=== PATIENT | male | born 1950 | race Caucasian/White ===

== ENCOUNTER 2020-05-27 03:46 | Inpatient (IN) ==
[2020-05-27] MEDS ORDERED: 0.9 % SODIUM CHLORIDE 1,000 ML IV SCH (04:45)
--- NOTE | 2020-05-27 08:08 | Internal Med History&Physical ---
HPI History of Present Illness Patient information: Note initiated : 05/27/20 at 8:02 am Service Date, if different from initiated Date: [] Patient: Carmen Morelos a 69 y/o M admitted on 05/27/20 for PNA. Chief Complaint: [] History of present illness: Mr. Morelos is a 69 year discomfort Presented ED with cough for 3 to 4 days and some mild chest. Seen in the ED and chest x-ray did not show anything been presented back 2 days ago.he is cough got worse and he started getting increasing shortness of breath. He did have Covid test which is negative. Patient states he woke up [place] morning feeling dehydrated. But did not have any cough or shortness of breath until at night when he went to bed and he developed shortness of breath shortness of breath with coughing. Started to cough up some yellow-white phlegm. Denies chest pain. Denies subjective fevers In the ED revealed a pneumonia and he was hypoxic. [facility] has staffing issues and patient was transferred to [facility]. Review of Systems: Pertinent positives as above. Denies headache/fever/chills/nausea/vomiting/chest or abdominal pain/diarrhea. Remaining 10 point review of system reviewed negative PFSH PFSH Social History (Updated 05/27/20 @ 08:05 by Bryson Toscano DO) smoking status: Former smoker additional history: Past medical history: Body mass index (BMI) 40.0-44.9, adult (ICD-V85.41) (XNW85-V31.41) DIABETES TYPE LI (POOR CONTROL) (ICD-250.02) (EST44-Q66.65) DIABETES MELLITUS, TYPE II (ICD-250.00) (TTL38-L25.9) Body mass index (BMI) 50-59.9 , adult (ICD-V85.43) (ECG02-L08.43) Morbid (severe) obesity due to excess calories (ICD-278.01) (YTC12-W70.01) Tinnitus, unspecified ear (ICD-388.30) (BZM50-H32.19) Ptosis, eyelid NOS (ICD-374.30) (FUA73-N70.409) CEPHALGIA (ICD-784.0) (NJW64-J79) RETINAL DETACHMENT, LEFT EYE, HX OF (ICD-V12.49) (FVO78-S16.69) GERD (ICD-530.81) (GQS74-R81.9) METABOLIC SYNDROME X (ICD-277.7) (RFJ89-N82.81) HYPERTENSION (ICD-401.9) (NFS98-G77) OBESITY (ICD-278.00) (YPB11-J96.9) DYSLIPIDEMIA (ICD-272.9) (NAG78-N85.9) Surgical History: appendectomy, T&A ,left ankle and right wrist ORIF, Left wrist Navicular fracture w/bone graft 2011. Family History: Reviewed, no changes required. Father (biol.) - Heart Disease Sister (full) - Other Cancer, Diabetes Social History: Reviewed, no changes required. Smoked Tobacco Use: Former smoker Cigarettes: Yes Year quit: 1980 Years Since Last Quit: 40 years, 4 months, 28 days Smokeless Tobacco Use: Never Drug use: no Caffeine use: 1 drinks per day Alcohol use: no Patient used to drink Marital Status: Current Employment: retired [employer] Home Medications and Allergies Home Medications Medication Instructions Recorded Confirmed Type ascorbic acid (vitamin C) 1,000 mg PO DAILY 05/27/20 05/27/20 History aspirin 325 mg PO HS 05/27/20 05/27/20 History atorvastatin 20 mg PO HS 05/27/20 05/27/20 History insulin NPH isoph U-100 human 20 unit SUBCUT BID 05/27/20 05/27/20 History [Novolin N NPH U-100 Insulin] lisinopril 40 mg PO HS 05/27/20 05/27/20 History metformin 850 mg PO BID 05/27/20 05/27/20 History omeprazole 20 mg PO BID 05/27/20 05/27/20 History pioglitazone 15 mg PO BID 05/27/20 05/27/20 History Allergies Allergy/AdvReac Type Severity Reaction Status Date / Time Erythromycin Base Allergy Verified 05/27/20 04:47 hydrocodone Allergy Verified 05/27/20 04:47 EXAM Constitutional Vitals: Temp Pulse Resp BP Pulse Ox 99.3 F H 95 H 22 120/88 91 05/27/20 06:48 05/27/20 06:48 05/27/20 06:48 05/27/20 06:48 11/07/20 06:48 Exam: General: Alert, Awake, No acute Distress, obese Eyes/N/T: EOMI, PERRL, dry MM Head/Neck: neck supple, normocephalic atraumatic CV: RRR, No murmurs, normal s1/s2 Pulm: Rhonchi b/l, no wheezing Abd: soft, nontender, +BS x4 Ext: no clubbing/cyanosis, 2+ b/l LE edema Neuro: Alert, no focal deficits, moves all extremities, CN 2-12 grossly intact, symmetrical strength b/l upper/lower, sensations intact b/l upper/lower Skin: warm/dry A/P Narrative A/P Narrative: A: *CAP w/SIRS: -elevated PCT -covid neg *Acute hypoxic respiratory failure: -2L NC *DANIEL: -1.7 on admit *Hyponatremia: *DM w/hyperglycemia: *HTN: *GERD: *Obesity: * P: -Abx, pending BC/SC -IVF -IS/Acapella, wean O2 a able -hold home ACEI -cont asa/statin -basal and SSI - -ppx: lovenox/home ppi full code Time Spent With Patient Time: Total time spent is greater than 50% in coordination of care (as documented) at patient's floor/unit and/or counseling patient: QUALITY VTE Deep Vein Thrombosis/Pulmonary Embolism Present on Admission: No
[2020-05-27] MEDS ORDERED: ONDANSETRON 4 MG/2 ML VIAL IV PRN (09:06)
[2020-05-27] MEDS ORDERED: POLYETHYLENE GLYCOL 3350 17 GM PACKET PO PRN (09:06)
[2020-05-27] MEDS ORDERED: POTASSIUM CHLORIDE 20 MEQ TABLET PO PRN ×2 (09:06)
[2020-05-27] MEDS ORDERED: SENNOSIDES 1 TABLET PO PRN (09:06)
[2020-05-27] MEDS ORDERED: POTASSIUM CHLORIDE 40 MEQ in DEXTROSE 5% IN WATER 500 ML IV PRN (09:06)
[2020-05-27] MEDS ORDERED: LACTULOSE 20 GM/30 ML ORAL.SOL PO PRN (09:06)
[2020-05-27] MEDS ORDERED: MAGNESIUM SULFATE 2 GM/50 ML BAG IV PRN (09:06)
[2020-05-27] MEDS ORDERED: IPRATROPIUM/ALBUTEROL 3 ML AMPUL.NEB NEB ONE (09:09)
[2020-05-27] MEDS ORDERED: DEXTROSE 50% 50 ML VIAL IV PRN (09:11)
[2020-05-27] MEDS ORDERED: DEXTROSE 31 GM ORAL.SUSP PO PRN (09:11)
[2020-05-27] MEDS ORDERED: LABETALOL 5 MG/ML ML IV PRN (09:13)
[2020-05-27 09:45] LABS: POC Blood Urea Nitrogen 43 mg/dL (6-20); POC CO2 26 mmol/L (22-30); POC Calcium, Ionized 1.05 mmEq/L (1.16-1.32); POC Chloride 99 mEq/L (96-108); POC Creatinine 1.5 mg/dL (0.6-1.2); POC Glucose, Random 283 mg/dL (70-105); POC Hematocrit 39 % (41-55); POC Potassium 5.1 mEql/L (3.3-5.1); POC Sodium 134 mEq/L (133-145)
[2020-05-27] MEDS: ENOXAPARIN 40 MG/0.4 ML SYRINGE SQ SCH (10:01)
[2020-05-27] MEDS: LEVOFLOXACIN 750 MG/150 ML BAG IV SCH (10:01)
[2020-05-27] MEDS: INSULIN NPH, HUMAN 1 UNIT/0.01 ML UNIT SQ SCH ×2 (10:01→20:40)
[2020-05-27] MEDS: 0.9 % SODIUM CHLORIDE 1,000 ML IV SCH ×2 (10:01→21:10)
[2020-05-27] MEDS: INSULIN LISPRO 1 UNIT/0.01 ML UNIT SQ SCH ×4 (12:00→20:41)
[2020-05-27] MEDS: 0.9 % SODIUM CHLORIDE 10 ML SYRINGE IV SCH ×2 (14:44→21:13)
[2020-05-27] MEDS: IPRATROPIUM/ALBUTEROL 3 ML AMPUL.NEB NEB PRN ×2 (14:46→19:12)
[2020-05-27] MEDS: ACETAMINOPHEN 325 MG TABLET PO PRN (19:23)
[2020-05-27] MEDS: OMEPRAZOLE 20 MG CAPSULE PO SCH (20:28)
[2020-05-27] MEDS: PIOGLITAZONE 15 MG TABLET PO SCH (20:28)
[2020-05-27] MEDS: DOCUSATE SODIUM 100 MG CAPSULE PO SCH (20:28)
[2020-05-27] MEDS: ATORVASTATIN 20 MG TABLET PO SCH (20:28)
[2020-05-28] MEDS: 0.9 % SODIUM CHLORIDE 10 ML SYRINGE IV SCH ×3 (05:08→20:34)
[2020-05-28] MEDS: ACETAMINOPHEN 325 MG TABLET PO PRN ×2 (05:08→17:09)
[2020-05-28 07:00] LABS: Basophils # (Auto) 0.02 K/mcL (0.00-0.20); Basophils % (Auto) 0.1 % (0.0-2.0); Eosinophils # (Auto) 0 K/mcL (0.00-0.70); Eosinophils % (Auto) 0 % (0.0-7.0); Hematocrit 31.5 % (41.0-55.0); Hemoglobin 10.2 g/dL (13.5-16.5); Lymphocytes # (Auto) 1.09 K/mcL (1.50-4.80); Lymphocytes % (Auto) 8.1 % (15.0-49.0); Mean Cell Volume 85.4 fL (80.0-100.0); Mean Corpuscular HGB Conc 32.4 g/dL (31.0-36.0); Mean Platelet Volume 10.3 fL (7.4-10.4); Monocytes # (Auto) 0.76 K/mcL (0.10-0.90); Monocytes % (Auto) 5.6 % (1.0-12.0); Neutrophils % (Auto) 86.2 % (38.0-78.0); Platelet Count 255 K/mcL (140-440); RBC 3.69 M/mcL (4.50-5.90); Red Cell Distribution Width 15.9 % (11.5-14.5); WBC 13.5 K/mcL (4.5-11.0)
[2020-05-28 07:13] LABS: ALT/SGPT 35 U/L (<40); AST/SGOT 45 U/L (<40); Albumin 2.7 gm/dL (3.2-5.2); Albumin/Globulin Ratio 0.8 (1.0-2.3); Alkaline Phosphatase 74 U/L (39-117); Bilirubin,Direct < 0.2 mg/dL (<0.3); Bilirubin,Total 0.3 mg/dL (0.1-1.0); Blood Urea Nitrogen 33 mg/dL (8-23); Calcium 7.5 mg/dL (8.6-10.4); Carbon Dioxide 18 mmol/L (22-30); Chloride 93 mmol/L (96-108); Globulin 3.6 gm/dL (2.2-3.7); Glomerular Filtration Rate 46; Glucose 310 mg/dL (70-105); Lactate Dehydrogenase 236 U/L (135-225); Phosphorous 1.3 mg/dL (2.5-4.5); Triglycerides 100 mg/dL (<150); Uric Acid 6.4 mg/dL (2.5-8.0)
--- NOTE | 2020-05-28 07:59 | Internal Med Progress Note ---
SUBJECTIVE Subjective Patient information: Note initiated : 05/28/20 at 7:55 am Service Date, if different from initiated Date: [] Patient: Carmen Morelos a 69 y/o M admitted on 05/27/20 for PNA. Chief Complaint: [] Interval history: History of present illness: Mr. Morelos is a 69 year discomfort Presented ED with cough for 3 to 4 days and some mild chest. Seen in the ED and chest x-ray did not show anything been presented back 2 days ago.he is cough got worse and he started getting increasing shortness of breath. He did have Covid test which is negative. Patient states he woke up Friday morning feeling dehydrated. But did not have any cough or shortness of breath until at night when he went to bed and he developed shortness of breath shortness of breath with coughing. Started to cough up some yellow-white phlegm. Denies chest pain. Denies subjective fevers In the ED revealed a pneumonia and he was hypoxic. [facility] has staffing issues and patient was transferred to [facility]. 05/28 Patient had some fevers and chills last night but overall feels much better. Shortness of breath is much improved although still on oxygen, currently on 5 L. But sats mid 90s. No other new pains or complaints other than the cough. Review of Systems: denies headache/nausea/vomiting/chest or abdominal pain/diarrhea. Otherwise see above. Constitutional Vitals: Vital Signs Temp Pulse Resp BP Pulse Ox 100.1 F H 95 H 18 126/68 93 05/28/20 07:13 05/28/20 07:13 05/28/20 07:13 05/28/20 07:13 05/28/20 07:13 Period Temp Pulse Resp BP Sys/Ruiz Pulse Ox Last 24 Hr 98.1 F-101.7 F 95-120 18-28 122-148/66-80 88-93 Intake and Output 05/27/20 05/28/20 05/28/20 21:59 05:59 13:59 Intake Total 2590 1999 Output Total 1100 775 200 Balance 1490 1225 -200 Weight 137.801 kg Intake & Output: Intake & Output 05/27/20 05/28/20 05/28/20 21:59 05:59 13:59 Intake Total 2590 1999 Output Total 1100 775 200 Balance 1490 1225 -200 Weight 137.801 kg Intake: IV 1790 Sodium Chloride 0.9% 1,000 ml @ 1790 75 mls/hr IV .[id number] [facility] Rx#: [id number] Oral 800 1999 Output: Urine Catheter Amount 600 Void Amount 500 775 200 Other: Meal Dinner Percent of Meal Consumed 75% Feeding Ability Independent Urine Appearance Clear Clear Urine Color Bright Yellow Bright Yellow Urine Odor Strong Normal Exam: General: Alert, Awake, No acute Distress, obese Eyes/N/T: EOMI, PERRL, Head/Neck: neck supple, CV: RRR, No murmurs, Pulm: right side rhonchi and diminished, no wheezing Abd: soft, nontender, +BS x4 Ext: no clubbing/cyanosis, 2+ b/l LE edema Neuro: Alert, no focal deficits, moves all extremities Skin: warm/dry OBJ DATA Labs CBC & Chem 7: 05/28/20 05:20 05/28/20 05:19 Labs: Abnormal Lab Results 05/28/20 05/28/20 05/27/20 05:20 05:19 09:35 WBC 13.5 H RBC 3.69 L Hgb 10.2 L Hct 31.5 L POC Hct 39 L RDW 15.9 H Neut % (Auto) 86.2 H Lymph % (Auto) 8.1 L Lymph # (Auto) 1.09 L Absolute Neutrophils 11.62 H Sodium 124 L Chloride 93 L Carbon Dioxide 18 L POC BUN 43 H BUN 33 H Creatinine 1.5 H POC Creatinine 1.5 H Glucose 310 H POC Glucose 283 H Calcium 7.5 L POC WB Ioniz Calcium 1.05 L Phosphorus 1.3 L Magnesium 1.3 L AST 45 H Lactate Dehydrogenase 236 H Albumin 2.7 L Albumin/Globulin Ratio 0.8 L Meds: Medications Acetaminophen (Tylenol) 650 mg PO Q6HP PRN PRN Reason: PAIN/FEVER > 101 Last Admin: 05/28/20 05:08 Dose: 650 mg Documented by: Albuterol/Ipratropium (Duoneb) 3 ml NEB Q4HP PRN PRN Reason: Shortness Of Breath Last Admin: 05/27/20 19:12 Dose: 3 ml Documented by: Atorvastatin Calcium (Lipitor) 20 mg PO HS [facility] Last Admin: 05/27/20 20:28 Dose: 20 mg Documented by: Dextrose (Dextrose 50%) 0 ml IV UD PRN PRN Reason: Hypoglycemia Diagnostic Test (Pha) (Accu-Chek) 1 each FS [facility] Last Admin: 05/27/20 20:30 Dose: 1 each Documented by: Docusate Sodium (Colace) 100 mg PO BID [facility] Last Admin: 05/27/20 20:28 Dose: 100 mg Documented by: Enoxaparin Sodium (Lovenox) 40 mg SQ DAILY [facility] Last Admin: 05/27/20 10:01 Dose: 40 mg Documented by: Glucose (Insta-Glucose) 15 gm PO PRN PRN PRN Reason: Hypoglycemia Sodium Chloride (Sodium Chloride 0.9%) 1,000 mls @ 75 mls/hr IV .[id number] [facility] Stop: 05/28/20 11:46 Last Admin: 05/27/20 21:10 Dose: 75 mls/hr Documented by: Potassium Chloride 40 meq/ (Dextrose) 520 mls @ 130 mls/hr IV UD PRN PRN Reason: Potassium < 3 Magnesium Sulfate (Magnesium Sulfate) 2 gm in 50 mls @ 50 mls/hr IV UD PRN PRN Reason: Magnesium </= 1.6 Levofloxacin (Levaquin) 750 mg in 150 mls @ 100 mls/hr IV Q24H [facility]; Protocol Last Infusion: 05/27/20 11:31 Dose: Infused Documented by: Insulin Human Lispro (Humalog) 0 unit SQ [facility]; Protocol Last Admin: 05/27/20 20:41 Dose: 12 units Documented by: Insulin Human NPH (Humalin N) 20 unit SQ BID [facility] Last Admin: 05/27/20 20:40 Dose: 20 units Documented by: Labetalol HCl (Trandate) 0 mg IV Q2HP PRN PRN Reason: Hypertension Lactulose (Cephulac) 20 gm PO DAILYP PRN PRN Reason: Constipation Omeprazole (Prilosec) 20 mg PO BID [facility] Last Admin: 05/27/20 20:28 Dose: 20 mg Documented by: Ondansetron HCl (Zofran) 4 mg IV Q4HP PRN PRN Reason: Nausea And Vomiting Pioglitazone HCl (Actos) 15 mg PO BID [facility] Last Admin: 05/27/20 20:28 Dose: 15 mg Documented by: Polyethylene Glycol (Miralax) 17 gm PO DAILYP PRN PRN Reason: Constipation Potassium Chloride (Kdur) 40 meq PO UD PRN PRN Reason: Potssium is 3-3.5 Potassium Chloride (Kdur) 40 meq PO UD PRN PRN Reason: Potassium < 3 Senna (Senokot) 2 tab PO DAILYP PRN PRN Reason: Constipation Sodium Chloride (Saline Flush) 10 ml IV Q8 [facility] Last Admin: 05/28/20 05:08 Dose: Not Given Documented by: A/P Narrative A/P Narrative: A: *CAP w/SIRS(dense RUL): -elevated PCT, febrile overnight -covid/myco/strep neg -WBC 16>13 *Acute hypoxic respiratory failure: -concern for a cardiac component, some cephalization on cxr and fissure fluid and peripheral edema -2-5L NC *DANIEL on ?CKD: -1.7>1.5 *Hyponatremia/hypomag/hypophos: 130>124 *DM w/hyperglycemia: A1c 8.6 *HTN: *GERD: *Obesity: P: -cont Levaquin, pending BC/SC -IS/Acapella, wean O2 a able -echo -hold home ACEI -cont asa/statin -basal (increase from 20bid to 30) and SSI - -ppx: lovenox/home ppi full code Time Spent With Patient Time: Total time spent is greater than 50% in coordination of care (as documented) at patient's floor/unit and/or counseling patient: QUALITY VTE Deep Vein Thrombosis/Pulmonary Embolism Present on Admission: No
[2020-05-28] MEDS ORDERED: MAGNESIUM SULFATE 2 GM/50 ML BAG IV ONE (08:03)
[2020-05-28 08:04] LABS: Estimated Average Glucose(eAG) 200 mg/dL; Hemoglobin A1C 8.6 % Hgb (4.0-6.0)
[2020-05-28] MEDS: INSULIN LISPRO 1 UNIT/0.01 ML UNIT SQ SCH ×5 (08:05→20:31)
[2020-05-28] MEDS: LEVOFLOXACIN 750 MG/150 ML BAG IV SCH (08:50)
[2020-05-28] MEDS: ENOXAPARIN 40 MG/0.4 ML SYRINGE SQ SCH (09:00)
[2020-05-28] MEDS: NEUTRA PHOS 1 PACKET PO SCH ×3 (09:02→20:30)
[2020-05-28] MEDS: DOCUSATE SODIUM 100 MG CAPSULE PO SCH ×2 (09:02→20:34)
[2020-05-28] MEDS: OMEPRAZOLE 20 MG CAPSULE PO SCH ×2 (09:03→20:31)
[2020-05-28] MEDS: INSULIN NPH, HUMAN 1 UNIT/0.01 ML UNIT SQ SCH ×2 (09:03→20:31)
[2020-05-28] MEDS: PIOGLITAZONE 15 MG TABLET PO SCH ×2 (09:03→20:31)
[2020-05-28] MEDS ORDERED: ALBUMIN HUMAN 12.5 GM/50 ML BAG IV ONE (09:41)
[2020-05-28] MEDS ORDERED: FUROSEMIDE 40 MG/4 ML VIAL IV ONE (09:41)
--- NOTE | 2020-05-28 10:02 | XRay Report ---
HISTORY: Follow-up pneumonia. FINDINGS: There is a large consolidating alveolar infiltrate in the right upper lobe with air bronchograms. There is mild involvement in superior segment of the right lower lobe. Right lung base and left lung are clear. No pleural effusion is present. The heart size is normal. No prior study is available for comparison. IMPRESSION: Severe right upper lobe pneumonia Interpreted and Authenticated by: Osito Sol 05/28/20
[2020-05-28] MEDS: guaiFENesin/CODEINE 10 ML UDC PO PRN ×2 (10:39→15:04)
[2020-05-28] MEDS: ATORVASTATIN 20 MG TABLET PO SCH (20:31)
[2020-05-29] MEDS: INSULIN LISPRO 1 UNIT/0.01 ML UNIT SQ SCH ×6 (00:20→20:37)
[2020-05-29] MEDS: guaiFENesin/CODEINE 10 ML UDC PO PRN ×2 (00:25→11:52)
[2020-05-29] MEDS: 0.9 % SODIUM CHLORIDE 10 ML SYRINGE IV SCH ×3 (04:16→20:25)
[2020-05-29 05:57] LABS: Basophils # (Auto) 0.02 K/mcL (0.00-0.20); Basophils % (Auto) 0.2 % (0.0-2.0); Eosinophils # (Auto) 0.02 K/mcL (0.00-0.70); Eosinophils % (Auto) 0.2 % (0.0-7.0); Hemoglobin 9.8 g/dL (13.5-16.5); Lymphocytes # (Auto) 1.27 K/mcL (1.50-4.80); Lymphocytes % (Auto) 10.2 % (15.0-49.0); Mean Corpuscular HGB Conc 32.7 g/dL (31.0-36.0); Mean Platelet Volume 9.9 fL (7.4-10.4); Monocytes # (Auto) 0.99 K/mcL (0.10-0.90); Neutrophils % (Auto) 81.4 % (38.0-78.0); Platelet Count 288 K/mcL (140-440); RBC 3.53 M/mcL (4.50-5.90); Red Cell Distribution Width 15.9 % (11.5-14.5); WBC 12.5 K/mcL (4.5-11.0)
[2020-05-29 06:28] LABS: Phosphorous 2.1 mg/dL (2.5-4.5)
[2020-05-29 06:30] LABS: ALT/SGPT 46 U/L (<40); AST/SGOT 61 U/L (<40); Albumin/Globulin Ratio 0.9 (1.0-2.3); Alkaline Phosphatase 84 U/L (39-117); Bilirubin,Direct < 0.2 mg/dL (<0.3); Bilirubin,Total 0.3 mg/dL (0.1-1.0); Blood Urea Nitrogen 26 mg/dL (8-23); Calcium 7.6 mg/dL (8.6-10.4); Carbon Dioxide 24 mmol/L (22-30); Chloride 92 mmol/L (96-108); Globulin 3.5 gm/dL (2.2-3.7); Glomerular Filtration Rate 61; Glucose 190 mg/dL (70-105); Lactate Dehydrogenase 254 U/L (135-225); Phosphorous 2.1 mg/dL (2.5-4.5); Triglycerides 130 mg/dL (<150); Uric Acid 6.4 mg/dL (2.5-8.0)
[2020-05-29] MEDS ORDERED: POTASSIUM PHOSPHATE 20 MEQ in DEXTROSE 5% IN WATER 250 ML IV ONE (07:11)
[2020-05-29] MEDS ORDERED: MAGNESIUM SULFATE 2 GM/50 ML BAG IV ONE (07:11)
[2020-05-29] MEDS: PIOGLITAZONE 15 MG TABLET PO SCH ×2 (08:41→20:23)
[2020-05-29] MEDS: DOCUSATE SODIUM 100 MG CAPSULE PO SCH ×2 (08:41→20:23)
[2020-05-29] MEDS: OMEPRAZOLE 20 MG CAPSULE PO SCH ×2 (08:41→20:23)
[2020-05-29] MEDS: PHOSPHORUS 250 MG TABLET PO SCH ×2 (08:41→20:23)
[2020-05-29] MEDS: ENOXAPARIN 40 MG/0.4 ML SYRINGE SQ SCH (08:42)
[2020-05-29] MEDS: LEVOFLOXACIN 750 MG/150 ML BAG IV SCH (08:43)
[2020-05-29] MEDS: INSULIN NPH, HUMAN 1 UNIT/0.01 ML UNIT SQ SCH ×2 (08:43→20:38)
--- NOTE | 2020-05-29 14:22 | Internal Med Progress Note ---
SUBJECTIVE Subjective Patient information: Note initiated : 05/29/20 at 2:16 pm Service Date, if different from initiated Date: [] Patient: Carmen Morelos a 69 y/o M admitted on 05/27/20 for PNA. Chief Complaint: [] Interval history: History of present illness: Mr. Morelos is a 69 year discomfort Presented ED with cough for 3 to 4 days and some mild chest. Seen in the ED and chest x-ray did not show anything been presented back 2 days ago.he is cough got worse and he started getting increasing shortness of breath. He did have Covid test which is negative. Patient states he woke up Friday morning feeling dehydrated. But did not have any cough or shortness of breath until at night when he went to bed and he developed shortness of breath shortness of breath with coughing. Started to cough up some yellow-white phlegm. Denies chest pain. Denies subjective fevers In the ED revealed a pneumonia and he was hypoxic. [facility] has staffing issues and patient was transferred to [facility]. 05/28 Patient had some fevers and chills last night but overall feels much better. Shortness of breath is much improved although still on oxygen, currently on 5 L. But sats mid 90s. No other new pains or complaints other than the cough. 05/29 Today pt feels fine and does not have new complaints. His leg swelling improving. Creatinine went down to 1.2 PHos and mag 2.1 and 1.6 Lasix 20mg iv bid Review of Systems: denies headache/nausea/vomiting/chest or abdominal pain/diarrhea. Otherwise see above. Constitutional Vitals: Vital Signs Temp Pulse Resp BP Pulse Ox 100.6 F H 91 H 20 155/72 95 05/29/20 11:58 05/29/20 11:58 05/29/20 11:58 05/29/20 11:58 05/29/20 11:58 Period Temp Pulse Resp BP Sys/Ruiz Pulse Ox Last 24 Hr 98.3 F-103.0 F 86-103 20-26 121-155/65-73 90-95 Intake and Output 05/29/20 05/29/20 05/29/20 05:59 13:59 21:59 Intake Total 237 221.6800 Output Total 100 Balance 336 142.1088 Weight 138.164 kg Intake & Output: Intake & Output 05/29/20 05/29/20 05/29/20 05:59 13:59 21:59 Intake Total 375 424.0358 Output Total 100 Balance 752 155.6983 Weight 138.164 kg Intake: IV 454.5455 Potassium Phosphate 20 Meq In 254.5455 Dextrose 5% in Water 250 ml @ 127.273 mls/hr IV ONCE ONE Rx#: [id number] Oral 400 Output: Void Amount 100 Other: Urine Appearance Clear Urine Color Pale Urine Odor Normal Stool Size Small Small Stool Color Brown Brown Stool Consistency Soft Soft Watery Watery # Voids 1 # Bowel Movements 1 Additional findings Additional findings: General: Alert, Awake, No acute Distress, obese Eyes/N/T: EOMI, PERRL, Head/Neck: neck supple, CV: RRR, No murmurs, Pulm: right side rhonchi and diminished, no wheezing Abd: soft, nontender, +BS x4 Ext: no clubbing/cyanosis, 2+ b/l LE edema Neuro: Alert, no focal deficits, moves all extremities Skin: warm/dry OBJ DATA Labs CBC & Chem 7: 05/29/20 04:36 05/29/20 04:36 Labs: Abnormal Lab Results 05/29/20 05/29/20 05/29/20 04:36 04:36 04:36 WBC 12.5 H RBC 3.53 L Hgb 9.8 L Hct 30.0 L POC Hct RDW 15.9 H Neut % (Auto) 81.4 H Lymph % (Auto) 10.2 L Lymph # (Auto) 1.27 L [place] # (Auto) 0.99 H Absolute Neutrophils 10.15 H Sodium 128 L Chloride 92 L Carbon Dioxide POC BUN BUN 26 H Creatinine POC Creatinine Glucose 190 H POC Glucose Hemoglobin A1c Calcium 7.6 L POC WB Ioniz Calcium Phosphorus 2.1 L 2.1 L Magnesium AST 61 H ALT 46 H Lactate Dehydrogenase 254 H NT-Pro-B Natriuret Pep Albumin 3.0 L Albumin/Globulin Ratio 0.9 L 05/28/20 05/28/20 05/28/20 08:17 05:20 05:19 WBC 13.5 H RBC 3.69 L Hgb 10.2 L Hct 31.5 L POC Hct RDW 15.9 H Neut % (Auto) 86.2 H Lymph % (Auto) 8.1 L Lymph # (Auto) 1.09 L [place] # (Auto) Absolute Neutrophils 11.62 H Sodium 124 L Chloride 93 L Carbon Dioxide 18 L POC BUN BUN 33 H Creatinine 1.5 H POC Creatinine Glucose 310 H POC Glucose Hemoglobin A1c 8.6 H Calcium 7.5 L POC WB Ioniz Calcium Phosphorus 1.3 L Magnesium 1.3 L AST 45 H ALT Lactate Dehydrogenase 236 H NT-Pro-B Natriuret Pep 1777.0 H Albumin 2.7 L Albumin/Globulin Ratio 0.8 L 05/27/20 09:35 WBC RBC Hgb Hct POC Hct 39 L RDW Neut % (Auto) Lymph % (Auto) Lymph # (Auto) [place] # (Auto) Absolute Neutrophils Sodium Chloride Carbon Dioxide POC BUN 43 H BUN Creatinine POC Creatinine 1.5 H Glucose POC Glucose 283 H Hemoglobin A1c Calcium POC WB Ioniz Calcium 1.05 L Phosphorus Magnesium AST ALT Lactate Dehydrogenase NT-Pro-B Natriuret Pep Albumin Albumin/Globulin Ratio Meds: Medications Acetaminophen (Tylenol) 650 mg PO Q6HP PRN PRN Reason: PAIN/FEVER > 101 Last Admin: 05/28/20 17:09 Dose: 650 mg Documented by: Albuterol/Ipratropium (Duoneb) 3 ml NEB Q4HP PRN PRN Reason: Shortness Of Breath Last Admin: 05/27/20 19:12 Dose: 3 ml Documented by: Atorvastatin Calcium (Lipitor) 20 mg PO HS [facility] Last Admin: 05/28/20 20:31 Dose: 20 mg Documented by: Dextrose (Dextrose 50%) 0 ml IV UD PRN PRN Reason: Hypoglycemia Diagnostic Test (Pha) (Accu-Chek) 1 each FS Q4H [facility] Last Admin: 05/29/20 11:52 Dose: 1 each Documented by: Docusate Sodium (Colace) 100 mg PO BID [facility] Last Admin: 05/29/20 08:41 Dose: 100 mg Documented by: Enoxaparin Sodium (Lovenox) 40 mg SQ DAILY [facility] Last Admin: 05/29/20 08:42 Dose: 40 mg Documented by: Glucose (Insta-Glucose) 15 gm PO PRN PRN PRN Reason: Hypoglycemia Guaifenesin/Codeine Phosphate (Robitussin Ac) 10 ml PO Q4HP PRN PRN Reason: Cough Last Admin: 05/29/20 11:52 Dose: 10 ml Documented by: Potassium Chloride 40 meq/ (Dextrose) 520 mls @ 130 mls/hr IV UD PRN PRN Reason: Potassium < 3 Magnesium Sulfate (Magnesium Sulfate) 2 gm in 50 mls @ 50 mls/hr IV UD PRN PRN Reason: Magnesium </= 1.6 Last Infusion: 05/28/20 08:30 Dose: Infused Documented by: Levofloxacin (Levaquin) 750 mg in 150 mls @ 100 mls/hr IV Q24H [facility]; Protocol Last Infusion: 05/29/20 10:20 Dose: Infused Documented by: Insulin Human Lispro (Humalog) 0 unit SQ Q4H [facility]; Protocol Last Admin: 05/29/20 11:56 Dose: 12 unit Documented by: Insulin Human NPH (Humalin N) 30 unit SQ BID [facility] Last Admin: 05/29/20 08:43 Dose: 30 unit Documented by: Labetalol HCl (Trandate) 0 mg IV Q2HP PRN PRN Reason: Hypertension Lactulose (Cephulac) 20 gm PO DAILYP PRN PRN Reason: Constipation Last Admin: 05/28/20 21:46 Dose: 20 gm Documented by: Omeprazole (Prilosec) 20 mg PO BID [facility] Last Admin: 05/29/20 08:41 Dose: 20 mg Documented by: Ondansetron HCl (Zofran) 4 mg IV Q4HP PRN PRN Reason: Nausea And Vomiting Pioglitazone HCl (Actos) 15 mg PO BID [facility] Last Admin: 05/29/20 08:41 Dose: 15 mg Documented by: Polyethylene Glycol (Miralax) 17 gm PO DAILYP PRN PRN Reason: Constipation Potassium Chloride (Kdur) 40 meq PO UD PRN PRN Reason: Potssium is 3-3.5 Potassium Chloride (Kdur) 40 meq PO UD PRN PRN Reason: Potassium < 3 Senna (Senokot) 2 tab PO DAILYP PRN PRN Reason: Constipation Last Admin: 05/28/20 09:02 Dose: 2 tab Documented by: Sodium Chloride (Saline Flush) 10 ml IV Q8 [facility] Last Admin: 05/29/20 12:02 Dose: 10 ml Documented by: Sodium Phosphate (Pot Phosphate Neutral) 250 mg PO BID [facility] Last Admin: 05/29/20 08:41 Dose: 250 mg Documented by: A/P Narrative A/P Narrative: 1. CAP w/SIRS(dense RUL): -elevated PCT, febrile overnight -covid/myco/strep neg -WBC 16>13>12.5 2. Acute hypoxic respiratory failure: -concern for a cardiac component, some cephalization on cxr and fissure fluid and peripheral edema -3 NC - Echo pending - Lasix 20mg iv bid 3. DANIEL on ?CKD: -1.7>1.5 >1.2 4. Hyponatremia/hypomag/hypophos: 5. DM w/hyperglycemia: A1c 8.6 6. HTN: 7. GERD: 8. Morbid obesity: BMI 43.7 9. Electrolytes derangement: Phos 2.1, mag 1.6 P: -cont Levaquin, pending BC/SC -IS/Acapella, wean O2 a able -echo -hold home ACEI -cont asa/statin -basal (increase from 20bid to 30) and SSI -correct electrolytes, repeat electrolyets in am -ppx: lovenox/home ppi full code Time Spent With Patient Time: Total time spent is greater than 50% in coordination of care (as documented) at patient's floor/unit and/or counseling patient: QUALITY VTE Deep Vein Thrombosis/Pulmonary Embolism Present on Admission: No
[2020-05-29] MEDS: ATORVASTATIN 20 MG TABLET PO SCH (20:23)
[2020-05-30] MEDS: INSULIN LISPRO 1 UNIT/0.01 ML UNIT SQ SCH ×6 (00:28→20:55)
[2020-05-30] MEDS: 0.9 % SODIUM CHLORIDE 10 ML SYRINGE IV SCH ×3 (05:52→20:56)
--- NOTE | 2020-05-30 08:36 | XRay Report ---
CLINICAL INFORMATION: tachycardia and tachypnea COMPARISON: 05/28/2020 FINDINGS: Heart size is normal for technique. Upper mediastinal widening and increased density in the right paratracheal region likely represent adenopathy. Right suprahilar mass is not excluded. Dense consolidated right upper lobe infiltrate shows slight improved aeration peripherally. No effusion. IMPRESSION: Slight improvement in large right upper lobe infiltrate since exam two days prior. Increased density in the right paratracheal and azygos region likely representing represent adenopathy. Right suprahilar mass is not excluded. If this does not clear on follow-up chest x-ray in 2-3 weeks, a chest CT would be recommended Interpreted and Authenticated by: Tomas Rogers 05/30/20
[2020-05-30] MEDS: PIOGLITAZONE 15 MG TABLET PO SCH ×2 (08:38→20:54)
[2020-05-30] MEDS: PHOSPHORUS 250 MG TABLET PO SCH ×2 (08:38→20:54)
[2020-05-30] MEDS: INSULIN NPH, HUMAN 1 UNIT/0.01 ML UNIT SQ SCH ×2 (08:38→20:55)
[2020-05-30] MEDS: OMEPRAZOLE 20 MG CAPSULE PO SCH ×2 (08:38→20:55)
[2020-05-30] MEDS: LEVOFLOXACIN 750 MG/150 ML BAG IV SCH (08:38)
[2020-05-30] MEDS: DOCUSATE SODIUM 100 MG CAPSULE PO SCH ×2 (08:39→20:55)
[2020-05-30] MEDS: ENOXAPARIN 40 MG/0.4 ML SYRINGE SQ SCH (08:39)
[2020-05-30] MEDS ORDERED: IPRATROPIUM/ALBUTEROL 3 ML AMPUL.NEB NEB PRN (09:11)
[2020-05-30] MEDS ORDERED: ALBUTEROL SULFATE 200 PUFF INHALER INH PRN (09:11)
--- NOTE | 2020-05-30 10:39 | Internal Med Progress Note ---
SUBJECTIVE Subjective Patient information: Note initiated : 05/30/20 at 10:35 am Service Date, if different from initiated Date: [] Patient: Carmen Morelos a 69 y/o M admitted on 05/27/20 for PNA. Chief Complaint: [] Interval history: History of present illness: Mr. Morelos is a 69 year discomfort Presented ED with cough for 3 to 4 days and some mild chest. Seen in the ED and chest x-ray did not show anything been presented back 2 days ago.he is cough got worse and he started getting increasing shortness of breath. He did have Covid test which is negative. Patient states he woke up Friday morning feeling dehydrated. But did not have any cough or shortness of breath until at night when he went to bed and he developed shortness of breath shortness of breath with coughing. Started to co ugh up some yellow-white phlegm. Denies chest pain. Denies subjective fevers In the ED revealed a pneumonia and he was hypoxic. [facility] has staffing issues and patient was transferred to [facility]. 05/28 Patient had some fevers and chills last night but overall feels much better. Shortness of breath is much improved although still on oxygen, currently on 5 L. But sats mid 90s. No other new pains or complaints other than the cough. 05/29 Today pt feels fine and does not have new complaints. His leg swelling improving. Creatinine went down to 1.2 PHos and mag 2.1 and 1.6 Lasix 20mg iv bid 05/30 Pt does not have new complaints. vital signs are stable and acceptable. Wheezing b/l will start him on short term of steroid. inhalers. fluid restriction pending echo report Review of Systems: denies headache/nausea/vomiting/chest or abdominal pain/diarrhea. Otherwise see above. Constitutional Vitals: Vital Signs Temp Pulse Resp BP Pulse Ox 98.5 F 112 H 22 126/72 91 05/30/20 08:00 05/30/20 08:00 05/30/20 08:00 05/30/20 08:00 05/30/20 08:00 Period Temp Pulse Resp BP Sys/Ruiz Pulse Ox Last 24 Hr 98.5 F-100.6 F 91-121 20-26 126-159/65-79 91-96 Intake and Output 05/29/20 05/30/20 05/30/20 21:59 05:59 13:59 Intake Total 700 Output Total 500 Balance 200 Weight 138.028 kg Intake & Output: Intake & Output 05/29/20 05/30/20 05/30/20 21:59 05:59 13:59 Intake Total 700 Output Total 500 Balance 200 Weight 138.028 kg Intake: Oral 700 Output: Void Amount 500 Other: Urine Appearance Clear Urine Color Bright Yellow # Bowel Movements 1 Additional findings Additional findings: General: Alert, Awake, No acute Distress, obese Eyes/N/T: EOMI, PERRL, Head/Neck: neck supple, CV: RRR, No murmurs, Pulm: wheezing b/l, right side rhonchi and diminished, Abd: soft, nontender, +BS x4 Ext: no clubbing/cyanosis, 2+ b/l LE edema Neuro: Alert, no focal deficits, moves all extremities Skin: warm/dry OBJ DATA Labs CBC & Chem 7: 05/29/20 04:36 05/29/20 04:36 Labs: Abnormal Lab Results 05/30/20 05/29/20 05/29/20 05:16 04:36 04:36 WBC RBC Hgb Hct RDW Neut % (Auto) Lymph % (Auto) Lymph # (Auto) [place] # (Auto) Absolute Neutrophils Sodium 128 L Chloride 92 L Carbon Dioxide BUN 26 H Creatinine Glucose 190 H Hemoglobin A1c Calcium 7.6 L Phosphorus 2.0 L 2.1 L 2.1 L Magnesium AST 61 H ALT 46 H Lactate Dehydrogenase 254 H NT-Pro-B Natriuret Pep Albumin 3.0 L Albumin/Globulin Ratio 0.9 L 05/29/20 05/28/20 05/28/20 04:36 08:17 05:20 WBC 12.5 H 13.5 H RBC 3.53 L 3.69 L Hgb 9.8 L 10.2 L Hct 30.0 L 31.5 L RDW 15.9 H 15.9 H Neut % (Auto) 81.4 H 86.2 H Lymph % (Auto) 10.2 L 8.1 L Lymph # (Auto) 1.27 L 1.09 L [place] # (Auto) 0.99 H Absolute Neutrophils 10.15 H 11.62 H Sodium Chloride Carbon Dioxide BUN Creatinine Glucose Hemoglobin A1c Calcium Phosphorus Magnesium AST ALT Lactate Dehydrogenase NT-Pro-B Natriuret Pep 1777.0 H Albumin Albumin/Globulin Ratio 05/28/20 05:19 WBC RBC Hgb Hct RDW Neut % (Auto) Lymph % (Auto) Lymph # (Auto) [place] # (Auto) Absolute Neutrophils Sodium 124 L Chloride 93 L Carbon Dioxide 18 L BUN 33 H Creatinine 1.5 H Glucose 310 H Hemoglobin A1c 8.6 H Calcium 7.5 L Phosphorus 1.3 L Magnesium 1.3 L AST 45 H ALT Lactate Dehydrogenase 236 H NT-Pro-B Natriuret Pep Albumin 2.7 L Albumin/Globulin Ratio 0.8 L Meds: Medications Acetaminophen (Tylenol) 650 mg PO Q6HP PRN PRN Reason: PAIN/FEVER > 101 Last Admin: 05/28/20 17:09 Dose: 650 mg Documented by: Albuterol Sulfate (Ventolin) 1 puff INH Q4-6HP PRN PRN Reason: Shortness Of Breath Albuterol/Ipratropium (Duoneb) 3 ml NEB Q4HP PRN PRN Reason: Shortness Of Breath Atorvastatin Calcium (Lipitor) 20 mg PO HS [facility] Last Admin: 05/29/20 20:23 Dose: 20 mg Documented by: Dextrose (Dextrose 50%) 0 ml IV UD PRN PRN Reason: Hypoglycemia Diagnostic Test (Pha) (Accu-Chek) 1 each FS Q4H [facility] Last Admin: 05/30/20 07:38 Dose: 1 each Documented by: Docusate Sodium (Colace) 100 mg PO BID [facility] Last Admin: 05/30/20 08:39 Dose: Not Given Documented by: Enoxaparin Sodium (Lovenox) 40 mg SQ DAILY [facility] Last Admin: 05/30/20 08:39 Dose: 40 mg Documented by: Glucose (Insta-Glucose) 15 gm PO PRN PRN PRN Reason: Hypoglycemia Guaifenesin/Codeine Phosphate (Robitussin Ac) 10 ml PO Q4HP PRN PRN Reason: Cough Last Admin: 05/29/20 11:52 Dose: 10 ml Documented by: Potassium Chloride 40 meq/ (Dextrose) 520 mls @ 130 mls/hr IV UD PRN PRN Reason: Potassium < 3 Magnesium Sulfate (Magnesium Sulfate) 2 gm in 50 mls @ 50 mls/hr IV UD PRN PRN Reason: Magnesium </= 1.6 Last Infusion: 05/28/20 08:30 Dose: Infused Documented by: Levofloxacin (Levaquin) 750 mg in 150 mls @ 100 mls/hr IV Q24H [facility]; Protocol Last Admin: 05/30/20 08:38 Dose: 100 mls/hr Documented by: Insulin Human Lispro (Humalog) 0 unit SQ Q4H [facility]; Protocol Last Admin: 05/30/20 07:47 Dose: 6 unit Documented by: Insulin Human NPH (Humalin N) 30 unit SQ BID [facility] Last Admin: 05/30/20 08:38 Dose: 30 unit Documented by: Lactulose (Cephulac) 20 gm PO DAILYP PRN PRN Reason: Constipation Last Admin: 05/28/20 21:46 Dose: 20 gm Documented by: Methylprednisolone Sodium Succinate (Solu-Medrol) 40 mg IV Q8 [facility] Omeprazole (Prilosec) 20 mg PO BID [facility] Last Admin: 05/30/20 08:38 Dose: 20 mg Documented by: Ondansetron HCl (Zofran) 4 mg IV Q4HP PRN PRN Reason: Nausea And Vomiting Pioglitazone HCl (Actos) 15 mg PO BID [facility] Last Admin: 05/30/20 08:38 Dose: 15 mg Documented by: Polyethylene Glycol (Miralax) 17 gm PO DAILYP PRN PRN Reason: Constipation Last Admin: 05/29/20 20:23 Dose: 17 gm Documented by: Potassium Chloride (Kdur) 40 meq PO UD PRN PRN Reason: Potssium is 3-3.5 Potassium Chloride (Kdur) 40 meq PO UD PRN PRN Reason: Potassium < 3 Senna (Senokot) 2 tab PO DAILYP PRN PRN Reason: Constipation Last Admin: 05/28/20 09:02 Dose: 2 tab Documented by: Sodium Chloride (Saline Flush) 10 ml IV Q8 [facility] Last Admin: 05/30/20 05:52 Dose: 10 ml Documented by: Sodium Phosphate (Pot Phosphate Neutral) 250 mg PO BID [facility] Last Admin: 05/30/20 08:38 Dose: 250 mg Documented by: A/P Narrative A/P Narrative: 1. CAP w/SIRS(dense RUL): -elevated PCT, febrile overnight -covid/myco/strep neg -WBC 16>13>12.5 2. Acute hypoxic respiratory failure: -concern for a cardiac component, some cephalization on cxr and fissure fluid and peripheral edema -3 NC - Echo pending - Lasix 20mg iv bid 3. DANIEL on ?CKD: -1.7>1.5 >1.2 4. Hyponatremia/hypomag/hypophos: 5. DM w/hyperglycemia: A1c 8.6 6. HTN: 7. GERD: 8. Morbid obesity: BMI 43.7 9. Electrolytes derangement: Phos 2.1, mag 1.6 10. COPD? wheezing b/l solumedry 40mg iv q8hrs, inhalers. P: -cont Levaquin, pending BC/SC -IS/Acapella, wean O2 a able -echo -hold home ACEI -cont asa/statin -basal (increase from 20bid to 30) and SSI -correct electrolytes, repeat electrolyets in am -ppx: lovenox/home ppi full code Time Spent With Patient Time: Total time spent is greater than 50% in coordination of care (as documented) at patient's floor/unit and/or counseling patient: QUALITY VTE Deep Vein Thrombosis/Pulmonary Embolism Present on Admission: No
[2020-05-30] MEDS: methylPREDNISolone SOD SUCC 40 MG/ML VIAL IV SCH ×2 (13:32→22:01)
[2020-05-30] MEDS: ATORVASTATIN 20 MG TABLET PO SCH (20:54)
[2020-05-31] MEDS: INSULIN LISPRO 1 UNIT/0.01 ML UNIT SQ SCH ×6 (00:32→21:14)
[2020-05-31] MEDS: methylPREDNISolone SOD SUCC 40 MG/ML VIAL IV SCH ×3 (05:49→21:20)
[2020-05-31] MEDS: 0.9 % SODIUM CHLORIDE 10 ML SYRINGE IV SCH ×3 (05:49→21:15)
[2020-05-31] MEDS ORDERED: DEXTROSE 31 GM ORAL.SUSP PO PRN (07:19)
[2020-05-31] MEDS ORDERED: DEXTROSE 50% 50 ML VIAL IV PRN (07:19)
[2020-05-31] MEDS: OMEPRAZOLE 20 MG CAPSULE PO SCH ×2 (08:57→21:15)
[2020-05-31] MEDS: PIOGLITAZONE 15 MG TABLET PO SCH ×2 (08:57→21:15)
[2020-05-31] MEDS: ENOXAPARIN 40 MG/0.4 ML SYRINGE SQ SCH (08:57)
[2020-05-31] MEDS: DOCUSATE SODIUM 100 MG CAPSULE PO SCH ×3 (08:57→21:15)
[2020-05-31] MEDS: PHOSPHORUS 250 MG TABLET PO SCH ×2 (08:57→21:15)
[2020-05-31] MEDS: INSULIN NPH, HUMAN 1 UNIT/0.01 ML UNIT SQ SCH ×2 (08:58→21:13)
[2020-05-31] MEDS: LEVOFLOXACIN 750 MG/150 ML BAG IV SCH (08:59)
--- NOTE | 2020-05-31 10:40 | Internal Med Progress Note ---
SUBJECTIVE Subjective Patient information: Note initiated : 05/31/20 at 10:36 am Service Date, if different from initiated Date: [] Patient: Carmen Morelos a 69 y/o M admitted on 05/27/20 for PNA. Chief Complaint: [] Interval history: History of present illness: Mr. Morelos is a 69 year discomfort Presented ED with cough for 3 to 4 days and some mild chest. Seen in the ED and chest x-ray did not show anything been presented back 2 days ago.he is cough got worse and he started getting increasing shortness of breath. He did have Covid test which is negative. Patient states he woke up Friday morning feeling dehydrated. But did not have any cough or shortness of breath until at night when he went to bed and he developed shortness of breath shortness of breath with coughing. Started to cou gh up some yellow-white phlegm. Denies chest pain. Denies subjective fevers In the ED revealed a pneumonia and he was hypoxic. [facility] has staffing issues and patient was transferred to [facility]. 05/28 Patient had some fevers and chills last night but overall feels much better. Shortness of breath is much improved although still on oxygen, currently on 5 L. But sats mid 90s. No other new pains or complaints other than the cough. 05/29 Today pt feels fine and does not have new complaints. His leg swelling improving. Creatinine went down to 1.2 PHos and mag 2.1 and 1.6 Lasix 20mg iv bid 05/30 Pt does not have new complaints. vital signs are stable and acceptable. Wheezing b/l will start him on short term of steroid. inhalers. fluid restriction pending echo report 05/31 Pt feels much better today, less sob. Denies fever, chills, nausea, or vomiting. His blood sugar went up today since I started him on steroids yesterday No overnight events. Review of Systems: denies headache/nausea/vomiting/chest or abdominal pain/diarrhea. Otherwise see above. Constitutional Vitals: Vital Signs Temp Pulse Resp BP Pulse Ox 97.5 F 82 20 122/72 95 05/31/20 07:25 05/31/20 07:25 05/31/20 07:25 05/31/20 07:25 05/31/20 09:00 Period Temp Pulse Resp BP Sys/Ruiz Pulse Ox Last 24 Hr 97.3 F-98.6 F 78-91 16-24 107-140/65-79 91-96 Intake and Output 05/30/20 05/31/20 05/31/20 21:59 05:59 13:59 Intake Total 400 800 Balance 400 800 Weight 137.438 kg Intake & Output: Intake & Output 05/30/20 05/31/20 05/31/20 21:59 05:59 13:59 Intake Total 400 800 Balance 400 800 Weight 137.438 kg Intake: Oral 400 800 Other: Meal Dinner Percent of Meal Consumed 100% Feeding Ability Independent Additional findings Additional findings: General: Alert, Awake, No acute Distress, obese Eyes/N/T: EOMI, PERRL, Head/Neck: neck supple, CV: RRR, No murmurs, Pulm: wheezing b/l (improving), right side rhonchi and diminished, Abd: soft, nontender, +BS x4 Ext: no clubbing/cyanosis, 2+ b/l LE edema Neuro: Alert, no focal deficits, moves all extremities Skin: warm/dry OBJ DATA Labs CBC & Chem 7: 05/29/20 04:36 05/29/20 04:36 Labs: Abnormal Lab Results 05/30/20 05/29/20 05/29/20 05:16 04:36 04:36 WBC RBC Hgb Hct RDW Neut % (Auto) Lymph % (Auto) Lymph # (Auto) [place] # (Auto) Absolute Neutrophils Sodium 128 L Chloride 92 L BUN 26 H Glucose 190 H Calcium 7.6 L Phosphorus 2.0 L 2.1 L 2.1 L AST 61 H ALT 46 H Lactate Dehydrogenase 254 H Albumin 3.0 L Albumin/Globulin Ratio 0.9 L 05/29/20 04:36 WBC 12.5 H RBC 3.53 L Hgb 9.8 L Hct 30.0 L RDW 15.9 H Neut % (Auto) 81.4 H Lymph % (Auto) 10.2 L Lymph # (Auto) 1.27 L [place] # (Auto) 0.99 H Absolute Neutrophils 10.15 H Sodium Chloride BUN Glucose Calcium Phosphorus AST ALT Lactate Dehydrogenase Albumin Albumin/Globulin Ratio Meds: Medications Acetaminophen (Tylenol) 650 mg PO Q6HP PRN PRN Reason: PAIN/FEVER > 101 Last Admin: 11/08/20 17:09 Dose: 650 mg Documented by: Albuterol Sulfate (Ventolin) 1 puff INH Q4-6HP PRN PRN Reason: Shortness Of Breath Albuterol/Ipratropium (Duoneb) 3 ml NEB Q4HP PRN PRN Reason: Shortness Of Breath Atorvastatin Calcium (Lipitor) 20 mg PO HS [facility] Last Admin: 05/30/20 20:54 Dose: 20 mg Documented by: Dextrose (Dextrose 50%) 0 ml IV UD PRN PRN Reason: Hypoglycemia Dextrose (Dextrose 50%) 0 ml IV UD PRN PRN Reason: Hypoglycemia Diagnostic Test (Pha) (Accu-Chek) 1 each FS Q4H [facility] Last Admin: 05/31/20 07:27 Dose: 1 each Documented by: Diagnostic Test (Pha) (Accu-Chek) 1 each FS ACHS [facility] Last Admin: 05/31/20 07:37 Dose: 1 each Documented by: Docusate Sodium (Colace) 100 mg PO BID [facility] Last Admin: 05/31/20 09:00 Dose: Not Given Documented by: Enoxaparin Sodium (Lovenox) 40 mg SQ DAILY [facility] Last Admin: 05/31/20 08:57 Dose: 40 mg Documented by: Glucose (Insta-Glucose) 15 gm PO PRN PRN PRN Reason: Hypoglycemia Glucose (Insta-Glucose) 15 gm PO PRN PRN PRN Reason: Hypoglycemia Guaifenesin/Codeine Phosphate (Robitussin Ac) 10 ml PO Q4HP PRN PRN Reason: Cough Last Admin: 05/29/20 11:52 Dose: 10 ml Documented by: Potassium Chloride 40 meq/ (Dextrose) 520 mls @ 130 mls/hr IV UD PRN PRN Reason: Potassium < 3 Magnesium Sulfate (Magnesium Sulfate) 2 gm in 50 mls @ 50 mls/hr IV UD PRN PRN Reason: Magnesium </= 1.6 Last Infusion: 05/28/20 08:30 Dose: Infused Documented by: Levofloxacin (Levaquin) 750 mg in 150 mls @ 100 mls/hr IV Q24H [facility]; Protocol Last Admin: 05/31/20 08:59 Dose: 100 mls/hr Documented by: Insulin Human Lispro (Humalog) 0 unit SQ ACHS [facility]; Protocol Last Admin: 05/31/20 07:29 Dose: 6 units Documented by: Insulin Human NPH (Humalin N) 33 unit SQ BID [facility] Last Admin: 05/31/20 08:58 Dose: 33 units Documented by: Lactulose (Cephulac) 20 gm PO DAILYP PRN PRN Reason: Constipation Last Admin: 05/28/20 21:46 Dose: 20 gm Documented by: Methylprednisolone Sodium Succinate (Solu-Medrol) 40 mg IV Q8 [facility] Last Admin: 05/31/20 05:49 Dose: 40 mg Documented by: Omeprazole (Prilosec) 20 mg PO BID [facility] Last Admin: 05/31/20 08:57 Dose: 20 mg Documented by: Ondansetron HCl (Zofran) 4 mg IV Q4HP PRN PRN Reason: Nausea And Vomiting Pioglitazone HCl (Actos) 15 mg PO BID [facility] Last Admin: 05/31/20 08:57 Dose: 15 mg Documented by: Polyethylene Glycol (Miralax) 17 gm PO DAILYP PRN PRN Reason: Constipation Last Admin: 05/29/20 20:23 Dose: 17 gm Documented by: Potassium Chloride (Kdur) 40 meq PO UD PRN PRN Reason: Potssium is 3-3.5 Potassium Chloride (Kdur) 40 meq PO UD PRN PRN Reason: Potassium < 3 Senna (Senokot) 2 tab PO DAILYP PRN PRN Reason: Constipation Last Admin: 05/28/20 09:02 Dose: 2 tab Documented by: Sodium Chloride (Saline Flush) 10 ml IV Q8 [facility] Last Admin: 05/31/20 05:49 Dose: 10 ml Documented by: Sodium Phosphate (Pot Phosphate Neutral) 250 mg PO BID [facility] Last Admin: 05/31/20 08:57 Dose: 250 mg Documented by: A/P Narrative A/P Narrative: 1. CAP w/SIRS(dense RUL): -elevated PCT, febrile overnight -covid/myco/strep neg -WBC 16>13>12.5 2. Acute hypoxic respiratory failure: -concern for a cardiac component, some cephalization on cxr and fissure fluid and peripheral edema -3 NC - Echo pending - Lasix 20mg iv bid 3. DANIEL on ?CKD: -1.7>1.5 >1.2 4. Hyponatremia/hypomag/hypophos: 5. DM w/hyperglycemia: A1c 8.6 6. HTN: 7. GERD: 8. Morbid obesity: BMI 43.7 9. Electrolytes derangement: Phos 2.1, mag 1.6 10. COPD? wheezing b/l solumedry 40mg iv q8hrs, inhalers. P: -cont Levaquin, pending BC/SC -IS/Acapella, wean O2 a able -echo pending -hold home ACEI -cont asa/statin -basal (increase from 20bid to 30) and SSI -correct electrolytes, repeat electrolyts in am -ppx: lovenox/home ppi full code Time Spent With Patient Time: Total time spent is greater than 50% in coordination of care (as docum ented) at patient's floor/unit and/or counseling patient: QUALITY VTE Deep Vein Thrombosis/Pulmonary Embolism Present on Admission: No
[2020-05-31 11:40] LABS: Basophils # (Auto) 0.02 K/mcL (0.00-0.20); Basophils % (Auto) 0.1 % (0.0-2.0); Eosinophils # (Auto) 0 K/mcL (0.00-0.70); Eosinophils % (Auto) 0 % (0.0-7.0); Hematocrit 33.3 % (41.0-55.0); Lymphocytes # (Auto) 1.17 K/mcL (1.50-4.80); Lymphocytes % (Auto) 6.8 % (15.0-49.0); Mean Cell Volume 83.9 fL (80.0-100.0); Mean Platelet Volume 9.6 fL (7.4-10.4); Monocytes # (Auto) 0.67 K/mcL (0.10-0.90); Monocytes % (Auto) 3.9 % (1.0-12.0); Neutrophils % (Auto) 89.2 % (38.0-78.0); Platelet Count 346 K/mcL (140-440); RBC 3.97 M/mcL (4.50-5.90); Red Cell Distribution Width 15.7 % (11.5-14.5); WBC 17.3 K/mcL (4.5-11.0)
[2020-05-31 12:06] LABS: ALT/SGPT 71 U/L (<40); AST/SGOT 74 U/L (<40); Albumin 3.1 gm/dL (3.2-5.2); Albumin/Globulin Ratio 0.8 (1.0-2.3); Alkaline Phosphatase 126 U/L (39-117); Bilirubin,Total 0.3 mg/dL (0.1-1.0); Blood Urea Nitrogen 19 mg/dL (8-23); Calcium 7.8 mg/dL (8.6-10.4); Carbon Dioxide 25 mmol/L (22-30); Chloride 93 mmol/L (96-108); Globulin 3.8 gm/dL (2.2-3.7); Glomerular Filtration Rate 76; Glucose 357 mg/dL (70-105)
[2020-05-31] MEDS: INSULIN LISPRO 1 UNIT/0.01 ML UNIT SQ PRN (21:13)
[2020-05-31] MEDS: ATORVASTATIN 20 MG TABLET PO SCH (21:15)
[2020-06-01] MEDS: INSULIN LISPRO 1 UNIT/0.01 ML UNIT SQ SCH ×5 (00:25→21:22)
[2020-06-01] MEDS: 0.9 % SODIUM CHLORIDE 10 ML SYRINGE IV SCH ×3 (05:19→21:23)
[2020-06-01] MEDS: methylPREDNISolone SOD SUCC 40 MG/ML VIAL IV SCH ×2 (05:19→21:22)
[2020-06-01 06:59] LABS: ALT/SGPT 79 U/L (<40); AST/SGOT 81 U/L (<40); Albumin 2.7 gm/dL (3.2-5.2); Albumin/Globulin Ratio 0.7 (1.0-2.3); Alkaline Phosphatase 117 U/L (39-117); Bilirubin,Total 0.2 mg/dL (0.1-1.0); Blood Urea Nitrogen 29 mg/dL (8-23); Calcium 7.5 mg/dL (8.6-10.4); Carbon Dioxide 28 mmol/L (22-30); Chloride 99 mmol/L (96-108); Globulin 3.7 gm/dL (2.2-3.7); Glomerular Filtration Rate 76; Glucose 282 mg/dL (70-105)
[2020-06-01 07:17] LABS: Basophils # (Auto) 0.04 K/mcL (0.00-0.20); Basophils % (Auto) 0.2 % (0.0-2.0); Eosinophils # (Auto) 0 K/mcL (0.00-0.70); Eosinophils % (Auto) 0 % (0.0-7.0); Hematocrit 30.9 % (41.0-55.0); Hemoglobin 10.2 g/dL (13.5-16.5); Lymphocytes # (Auto) 1.89 K/mcL (1.50-4.80); Lymphocytes % (Auto) 7.4 % (15.0-49.0); Mean Cell Volume 83.3 fL (80.0-100.0); Mean Platelet Volume 9.5 fL (7.4-10.4); Monocytes # (Auto) 1.24 K/mcL (0.10-0.90); Monocytes % (Auto) 4.9 % (1.0-12.0); Neutrophils % (Auto) 87.5 % (38.0-78.0); Platelet Count 376 K/mcL (140-440); RBC 3.71 M/mcL (4.50-5.90); Red Cell Distribution Width 15.8 % (11.5-14.5); WBC 25.5 K/mcL (4.5-11.0)
[2020-06-01] MEDS: INSULIN NPH, HUMAN 1 UNIT/0.01 ML UNIT SQ SCH ×2 (08:43→16:58)
[2020-06-01] MEDS: OMEPRAZOLE 20 MG CAPSULE PO SCH ×2 (08:43→21:23)
[2020-06-01] MEDS: PHOSPHORUS 250 MG TABLET PO SCH ×2 (08:43→21:23)
[2020-06-01] MEDS: PIOGLITAZONE 15 MG TABLET PO SCH ×2 (08:43→21:23)
[2020-06-01] MEDS: ENOXAPARIN 40 MG/0.4 ML SYRINGE SQ SCH (08:43)
[2020-06-01] MEDS: DOCUSATE SODIUM 100 MG CAPSULE PO SCH ×2 (08:43→21:23)
[2020-06-01] MEDS: LEVOFLOXACIN 750 MG/150 ML BAG IV SCH (08:49)
[2020-06-01] MEDS ORDERED: methylPREDNISolone SOD SUCC 40 MG/ML VIAL IV SCH (09:00)
--- NOTE | 2020-06-01 09:05 | XRay Report ---
CLINICAL INFORMATION: Follow-up pneumonia COMPARISON: 05/30/2020 FINDINGS: Heart size, mediastinum and pulmonary vessels are normal. Right upper lobe infiltrate continues to decrease in density. The remaining lungs are clear. No effusions. IMPRESSION: Improved aeration in the large right upper lobe pneumonia since yesterday Interpreted and Authenticated by: Tomas Rogers 06/01/20
--- NOTE | 2020-06-01 13:37 | Internal Med Progress Note ---
SUBJECTIVE Subjective Patient information: Note initiated : 06/01/20 at 1:32 pm Service Date, if different from initiated Date: [] Patient: Carmen Morelos a 69 y/o M admitted on 05/27/20 for PNA. Chief Complaint: [] Interval history: History of present illness: Mr. Morelos is a 69 year discomfort Presented ED with cough for 3 to 4 days and some mild chest. Seen in the ED and chest x-ray did not show anything been presented back 2 days ago.he is cough got worse and he started getting increasing shortness of breath. He did have Covid test which is negative. Patient states he woke up Friday morning feeling dehydrated. But did not have any cough or shortness of breath until at night when he went to bed and he developed shortness of breath shortness of breath with coughing. Started to cou gh up some yellow-white phlegm. Denies chest pain. Denies subjective fevers In the ED revealed a pneumonia and he was hypoxic. [facility] has staffing issues and patient was transferred to [facility]. 05/28 Patient had some fevers and chills last night but overall feels much better. Shortness of breath is much improved although still on oxygen, currently on 5 L. But sats mid 90s. No other new pains or complaints other than the cough. 05/29 Today pt feels fine and does not have new complaints. His leg swelling improving. Creatinine went down to 1.2 PHos and mag 2.1 and 1.6 Lasix 20mg iv bid 05/30 Pt does not have new complaints. vital signs are stable and acceptable. Wheezing b/l will start him on short term of steroid. inhalers. fluid restriction pending echo report 05/31 Pt feels much better today, less sob. Denies fever, chills, nausea, or vomiting. His blood sugar went up today since I started him on steroids yesterday No overnight events. 06/01 His wheezing and shortness of breath are significantly improved. Denies fever, chills, headache or chest pain. Blood sugar went up to greater than 400 due to use of steroids AST/ALT 81/79 Patient is on Levaquin since May 27 Review of Systems: denies headache/nausea/vomiting/chest or abdominal pain/diarrhea. Otherwise see above. Constitutional Vitals: Vital Signs Temp Pulse Resp BP Pulse Ox 97.6 F 91 H 18 134/73 92 06/01/20 12:00 06/01/20 12:00 06/01/20 12:00 06/01/20 12:00 06/01/20 12:00 Period Temp Pulse Resp BP Sys/Ruiz Pulse Ox Last 24 Hr 97.6 F-98.8 F 80-94 18-22 118-138/67-76 90-96 Intake and Output 05/31/20 06/01/20 06/01/20 21:59 05:59 13:59 Intake Total 540 600 150 Balance 540 600 150 Weight 134.859 kg Intake & Output: Intake & Output 05/31/20 06/01/20 06/01/20 21:59 05:59 13:59 Intake Total 540 600 150 Balance 540 600 150 Weight 134.859 kg Intake: IV 150 Oral 540 600 Other: Meal Dinner Percent of Meal Consumed 100% Feeding Ability Assist with Tray Set Up Urine Appearance Clear Urine Color Bright Yellow Urine Odor Normal Stool Size Small Stool Color Brown Stool Consistency Soft Watery # Voids 2 3 # Bowel Movements 1 Additional findings Additional findings: General: Alert, Awake, No acute Distress, obese Eyes/N/T: EOMI, PERRL, Head/Neck: neck supple, CV: RRR, No murmurs, Pulm: wheezing b/l (significantly improved), diminished BS, Abd: soft, nontender, +BS x4 Ext: no clubbing/cyanosis, 2+ b/l LE edema (improving) Neuro: Alert, no focal deficits, moves all extremities Skin: warm/dry OBJ DATA Labs CBC & Chem 7: 06/01/20 05:09 06/01/20 05:09 Labs: Abnormal Lab Results 06/01/20 06/01/20 05/31/20 05:09 05:09 11:10 WBC 25.5 H 17.3 H RBC 3.71 L 3.97 L Hgb 10.2 L 11.0 L Hct 30.9 L 33.3 L RDW 15.8 H 15.7 H Neut % (Auto) 87.5 H 89.2 H Lymph % (Auto) 7.4 L 6.8 L Lymph # (Auto) 1.17 L [place] # (Auto) 1.24 H Absolute Neutrophils 22.28 H 15.47 H Sodium Chloride BUN 29 H Glucose 282 H Calcium 7.5 L Phosphorus AST 81 H ALT 79 H Alkaline Phosphatase Albumin 2.7 L Globulin Albumin/Globulin Ratio 0.7 L 05/31/20 05/30/20 11:09 05:16 WBC RBC Hgb Hct RDW Neut % (Auto) Lymph % (Auto) Lymph # (Auto) [place] # (Auto) Absolute Neutrophils Sodium 130 L Chloride 93 L BUN Glucose 357 H Calcium 7.8 L Phosphorus 2.0 L AST 74 H ALT 71 H Alkaline Phosphatase 126 H Albumin 3.1 L Globulin 3.8 H Albumin/Globulin Ratio 0.8 L Meds: Medications Acetaminophen (Tylenol) 650 mg PO Q6HP PRN PRN Reason: PAIN/FEVER > 101 Last Admin: 05/28/20 17:09 Dose: 650 mg Documented by: Albuterol Sulfate (Ventolin) 1 puff INH Q4-6HP PRN PRN Reason: Shortness Of Breath Albuterol/Ipratropium (Duoneb) 3 ml NEB Q4HP PRN PRN Reason: Shortness Of Breath Atorvastatin Calcium (Lipitor) 20 mg PO HS [facility] Last Admin: 05/31/20 21:15 Dose: 20 mg Documented by: Dextrose (Dextrose 50%) 0 ml IV UD PRN PRN Reason: Hypoglycemia Dextrose (Dextrose 50%) 0 ml IV UD PRN PRN Reason: Hypoglycemia Diagnostic Test (Pha) (Accu-Chek) 1 each FS ACHS [facility] Last Admin: 06/01/20 11:42 Dose: 1 each Documented by: Docusate Sodium (Colace) 100 mg PO BID [facility] Last Admin: 06/01/20 08:43 Dose: 100 mg Documented by: Enoxaparin Sodium (Lovenox) 40 mg SQ DAILY [facility] Last Admin: 06/01/20 08:43 Dose: 40 mg Documented by: Glucose (Insta-Glucose) 15 gm PO PRN PRN PRN Reason: Hypoglycemia Glucose (Insta-Glucose) 15 gm PO PRN PRN PRN Reason: Hypoglycemia Guaifenesin/Codeine Phosphate (Robitussin Ac) 10 ml PO Q4HP PRN PRN Reason: Cough Last Admin: 05/29/20 11:52 Dose: 10 ml Documented by: Potassium Chloride 40 meq/ (Dextrose) 520 mls @ 130 mls/hr IV UD PRN PRN Reason: Potassium < 3 Magnesium Sulfate (Magnesium Sulfate) 2 gm in 50 mls @ 50 mls/hr IV UD PRN PRN Reason: Magnesium </= 1.6 Last Infusion: 05/28/20 08:30 Dose: Infused Documented by: Levofloxacin (Levaquin) 750 mg in 150 mls @ 100 mls/hr IV Q24H [facility]; Protocol Last Infusion: 06/01/20 10:20 Dose: Infused Documented by: Insulin Human Lispro (Humalog) 0 unit SQ ACHS [facility]; Protocol Last Admin: 06/01/20 11:45 Dose: 12 units Documented by: Insulin Human Lispro (Humalog) 8 unit SQ Q4HP PRN; Protocol PRN Reason: hyperglycemia Last Admin: 05/31/20 21:13 Dose: 8 units Documented by: Insulin Human NPH (Humalin N) 38 unit SQ BIDAC [facility] Last Admin: 06/01/20 08:43 Dose: 38 units Documented by: Lactulose (Cephulac) 20 gm PO DAILYP PRN PRN Reason: Constipation Last Admin: 05/28/20 21:46 Dose: 20 gm Documented by: Methylprednisolone Sodium Succinate (Solu-Medrol) 40 mg IV Q12H [facility] Omeprazole (Prilosec) 20 mg PO BID [facility] Last Admin: 06/01/20 08:43 Dose: 20 mg Documented by: Ondansetron HCl (Zofran) 4 mg IV Q4HP PRN PRN Reason: Nausea And Vomiting Pioglitazone HCl (Actos) 15 mg PO BID [facility] Last Admin: 06/01/20 08:43 Dose: 15 mg Documented by: Polyethylene Glycol (Miralax) 17 gm PO DAILYP PRN PRN Reason: Constipation Last Admin: 05/29/20 20:23 Dose: 17 gm Documented by: Potassium Chloride (Kdur) 40 meq PO UD PRN PRN Reason: Potssium is 3-3.5 Potassium Chloride (Kdur) 40 meq PO UD PRN PRN Reason: Potassium < 3 Senna (Senokot) 2 tab PO DAILYP PRN PRN Reason: Constipation Last Admin: 05/28/20 09:02 Dose: 2 tab Documented by: Sodium Chloride (Saline Flush) 10 ml IV Q8 [facility] Last Admin: 06/01/20 05:19 Dose: 10 ml Documented by: Sodium Phosphate (Pot Phosphate Neutral) 250 mg PO BID [facility] Last Admin: 06/01/20 08:43 Dose: 250 mg Documented by: A/P Narrative A/P Narrative: 1. CAP w/SIRS(dense RUL): -elevated PCT, febrile overnight -covid/myco/strep neg -WBC 16>13>12.5 2. Acute hypoxic respiratory failure: -concern for a cardiac component, some cephalization on cxr and fissure fluid and peripheral edema -3 NC - Echo pending - Lasix 20mg iv bid 3. DANIEL on ?CKD: -1.7>1.5 >1.2 4. Hyponatremia/hypomag/hypophos: 5. DM w/hyperglycemia: A1c 8.6 6. HTN: 7. GERD: 8. Morbid obesity: BMI 43.7 9. Electrolytes derangement: Phos 2.1, mag 1.6 10. COPD? wheezing b/l solumedry 40mg iv q8hrs, inhalers. P: -cont Levaquin, pending BC/SC -IS/Acapella, wean O2 a able -echo pending -hold home ACEI -cont asa/statin -basal (increase from 20bid to 30) and SSI -correct electrolytes, repeat electrolyts in am -ppx: lovenox/home ppi full code Time Spent With Patient Time: Total time spent is greater than 50% in coordination of care (as documented) at patient's floor/unit and/or counseling patient: QUALITY VTE Deep Vein Thrombosis/Pulmonary Embolism Present on Admission: No
--- NOTE | 2020-06-01 13:43 | Internal Med Progress Note ---
SUBJECTIVE Subjective Patient information: Note initiated : 06/01/20 at 1:43 pm Service Date, if different from initiated Date: [] Patient: Carmen Morelos a 69 y/o M admitted on 05/27/20 for PNA. Chief Complaint: [] Interval history: History of present illness: Mr. Morelos is a 69 year discomfort Presented ED with cough for 3 to 4 days and some mild chest. Seen in the ED and chest x-ray did not show anything been presented back 2 days ago.he is cough got worse and he started getting increasing shortness of breath. He did have Covid test which is negative. Patient states he woke up Friday morning feeling dehydrated. But did not have any cough or shortness of breath until at night when he went to bed and he developed shortness of breath shortness of breath with coughing. Started to cou gh up some yellow-white phlegm. Denies chest pain. Denies subjective fevers In the ED revealed a pneumonia and he was hypoxic. [facility] has staffing issues and patient was transferred to [facility]. 05/28 Patient had some fevers and chills last night but overall feels much better. Shortness of breath is much improved although still on oxygen, currently on 5 L. But sats mid 90s. No other new pains or complaints other than the cough. 05/29 Today pt feels fine and does not have new complaints. His leg swelling improving. Creatinine went down to 1.2 PHos and mag 2.1 and 1.6 Lasix 20mg iv bid 05/30 Pt does not have new complaints. vital signs are stable and acceptable. Wheezing b/l will start him on short term of steroid. inhalers. fluid restriction pending echo report 05/31 Pt feels much better today, less sob. Denies fever, chills, nausea, or vomiting. His blood sugar went up today since I started him on steroids yesterday No overnight events. 06/01 Pt's SOB and wheezing significantly improved. Denies fever/chill, chest pain or dysuria His glucose went up to > 400 and wbc 25 today. No evidnece of bacterial infection. procalcitonin. Most likely due to use of steroid. He is on 3L Review of Systems: denies headache/nausea/vomiting/chest or abdominal pain/diarrhea. Otherwise see above. Constitutional Vitals: Vital Signs Temp Pulse Resp BP Pulse Ox 97.6 F 91 H 18 134/73 92 06/01/20 12:00 06/01/20 12:00 06/01/20 12:00 06/01/20 12:00 06/01/20 12:00 Period Temp Pulse Resp BP Sys/Ruiz Pulse Ox Last 24 Hr 97.6 F-98.8 F 80-94 18-22 118-138/67-76 90-96 Intake and Output 05/31/20 06/01/20 06/01/20 21:59 05:59 13:59 Intake Total 540 600 150 Balance 540 600 150 Weight 134.859 kg Intake & Output: Intake & Output 05/31/20 06/01/20 06/01/20 21:59 05:59 13:59 Intake Total 540 600 150 Balance 540 600 150 Weight 134.859 kg Intake: IV 150 Oral 540 600 Other: Meal Dinner Percent of Meal Consumed 100% Feeding Ability Assist with Tray Set Up Urine Appearance Clear Urine Color Bright Yellow Urine Odor Normal Stool Size Small Stool Color Brown Stool Consistency Soft Watery # Voids 2 3 # Bowel Movements 1 Additional findings Additional findings: General: Alert, Awake, No acute Distress, obese Eyes/N/T: EOMI, PERRL, Head/Neck: neck supple, CV: RRR, No murmurs, Pulm: wheezing b/l (significantly improving), right side rhonchi and diminished, Abd: soft, nontender, +BS x4 Ext: no clubbing/cyanosis, 2+ b/l LE edema Neuro: Alert, no focal deficits, moves all extremities Skin: warm/dry OBJ DATA Labs CBC & Chem 7: 06/01/20 05:09 06/01/20 05:09 Labs: Abnormal Lab Results 06/01/20 06/01/20 05/31/20 05:09 05:09 11:10 WBC 25.5 H 17.3 H RBC 3.71 L 3.97 L Hgb 10.2 L 11.0 L Hct 30.9 L 33.3 L RDW 15.8 H 15.7 H Neut % (Auto) 87.5 H 89.2 H Lymph % (Auto) 7.4 L 6.8 L Lymph # (Auto) 1.17 L [place] # (Auto) 1.24 H Absolute Neutrophils 22.28 H 15.47 H Sodium Chloride BUN 29 H Glucose 282 H Calcium 7.5 L Phosphorus AST 81 H ALT 79 H Alkaline Phosphatase Albumin 2.7 L Globulin Albumin/Globulin Ratio 0.7 L 05/31/20 05/30/20 11:09 05:16 WBC RBC Hgb Hct RDW Neut % (Auto) Lymph % (Auto) Lymph # (Auto) [place] # (Auto) Absolute Neutrophils Sodium 130 L Chloride 93 L BUN Glucose 357 H Calcium 7.8 L Phosphorus 2.0 L AST 74 H ALT 71 H Alkaline Phosphatase 126 H Albumin 3.1 L Globulin 3.8 H Albumin/Globulin Ratio 0.8 L Meds: Medications Acetaminophen (Tylenol) 650 mg PO Q6HP PRN PRN Reason: PAIN/FEVER > 101 Last Admin: 05/28/20 17:09 Dose: 650 mg Documented by: Albuterol Sulfate (Ventolin) 1 puff INH Q4-6HP PRN PRN Reason: Shortness Of Breath Albuterol/Ipratropium (Duoneb) 3 ml NEB Q4HP PRN PRN Reason: Shortness Of Breath Atorvastatin Calcium (Lipitor) 20 mg PO HS [facility] Last Admin: 05/31/20 21:15 Dose: 20 mg Documented by: Dextrose (Dextrose 50%) 0 ml IV UD PRN PRN Reason: Hypoglycemia Dextrose (Dextrose 50%) 0 ml IV UD PRN PRN Reason: Hypoglycemia Diagnostic Test (Pha) (Accu-Chek) 1 each FS ACHS [facility] Last Admin: 06/01/20 11:42 Dose: 1 each Documented by: Docusate Sodium (Colace) 100 mg PO BID [facility] Last Admin: 06/01/20 08:43 Dose: 100 mg Documented by: Enoxaparin Sodium (Lovenox) 40 mg SQ DAILY [facility] Last Admin: 06/01/20 08:43 Dose: 40 mg Documented by: Glucose (Insta-Glucose) 15 gm PO PRN PRN PRN Reason: Hypoglycemia Glucose (Insta-Glucose) 15 gm PO PRN PRN PRN Reason: Hypoglycemia Guaifenesin/Codeine Phosphate (Robitussin Ac) 10 ml PO Q4HP PRN PRN Reason: Cough Last Admin: 05/29/20 11:52 Dose: 10 ml Documented by: Potassium Chloride 40 meq/ (Dextrose) 520 mls @ 130 mls/hr IV UD PRN PRN Reason: Potassium < 3 Magnesium Sulfate (Magnesium Sulfate) 2 gm in 50 mls @ 50 mls/hr IV UD PRN PRN Reason: Magnesium </= 1.6 Last Infusion: 05/28/20 08:30 Dose: Infused Documented by: Levofloxacin (Levaquin) 750 mg in 150 mls @ 100 mls/hr IV Q24H [facility]; Protocol Last Infusion: 06/01/20 10:20 Dose: Infused Documented by: Insulin Human Lispro (Humalog) 0 unit SQ ACHS [facility]; Protocol Last Admin: 06/01/20 11:45 Dose: 12 units Documented by: Insulin Human Lispro (Humalog) 8 unit SQ Q4HP PRN; Protocol PRN Reason: hyperglycemia Last Admin: 05/31/20 21:13 Dose: 8 units Documented by: Insulin Human NPH (Humalin N) 38 unit SQ BIDAC [facility] Last Admin: 06/01/20 08:43 Dose: 38 units Documented by: Lactulose (Cephulac) 20 gm PO DAILYP PRN PRN Reason: Constipation Last Admin: 05/28/20 21:46 Dose: 20 gm Documented by: Methylprednisolone Sodium Succinate (Solu-Medrol) 40 mg IV Q12H [facility] Omeprazole (Prilosec) 20 mg PO BID [facility] Last Admin: 06/01/20 08:43 Dose: 20 mg Documented by: Ondansetron HCl (Zofran) 4 mg IV Q4HP PRN PRN Reason: Nausea And Vomiting Pioglitazone HCl (Actos) 15 mg PO BID [facility] Last Admin: 06/01/20 08:43 Dose: 15 mg Documented by: Polyethylene Glycol (Miralax) 17 gm PO DAILYP PRN PRN Reason: Constipation Last Admin: 05/29/20 20:23 Dose: 17 gm Documented by: Potassium Chloride (Kdur) 40 meq PO UD PRN PRN Reason: Potssium is 3-3.5 Potassium Chloride (Kdur) 40 meq PO UD PRN PRN Reason: Potassium < 3 Senna (Senokot) 2 tab PO DAILYP PRN PRN Reason: Constipation Last Admin: 05/28/20 09:02 Dose: 2 tab Documented by: Sodium Chloride (Saline Flush) 10 ml IV Q8 [facility] Last Admin: 06/01/20 05:19 Dose: 10 ml Documented by: Sodium Phosphate (Pot Phosphate Neutral) 250 mg PO BID [facility] Last Admin: 06/01/20 08:43 Dose: 250 mg Documented by: A/P Narrative A/P Narrative: 1. CAP w/SIRS(dense RUL): -elevated PCT, febrile overnight -covid/myco/strep neg -WBC went up to 25 but pt is on steroid. Procalcitonin 2. Acute hypoxic respiratory failure: -concern for a cardiac component, some cephalization on cxr and fissure fluid and peripheral edema -3 NC - Echo pending - Lasix 20mg iv bid 3. DANIEL on ?CKD: -1.7>1.5 >1.2 > 1.0 4. Hyponatremia/hypomag/hypophos: 5. DM w/hyperglycemia: A1c 8.6 6. HTN: 7. GERD: 8. Morbid obesity: BMI 43.7 9. Electrolytes derangement: replated and repeated. 10. COPD? wheezing b/l, significantly improved Decreased solumedry to 40mg iv q12hrs, inhalers. P: -cont Levaquin since 05/27 -IS/Acapella, wean O2 a able -echo pending -hold home ACEI -cont asa/statin -basal (increase from 20bid to 30) and SSI -correct electrolytes, repeat electrolyts in am -ppx: lovenox/home ppi full code Time Spent With Patient Time: Total time spent is greater than 50% in coordination of care (as documented) at patient's floor/unit and/or counseling patient: QUALITY VTE Deep Vein Thrombosis/Pulmonary Embolism Present on Admission: No
[2020-06-01] MEDS: INSULIN LISPRO 1 UNIT/0.01 ML UNIT SQ PRN (17:10)
[2020-06-01] MEDS: ATORVASTATIN 20 MG TABLET PO SCH (21:23)
[2020-06-02] MEDS: 0.9 % SODIUM CHLORIDE 10 ML SYRINGE IV SCH ×2 (04:48→12:10)
[2020-06-02] MEDS: PHOSPHORUS 250 MG TABLET PO SCH (08:23)
[2020-06-02] MEDS: OMEPRAZOLE 20 MG CAPSULE PO SCH (08:24)
[2020-06-02] MEDS: DOCUSATE SODIUM 100 MG CAPSULE PO SCH (08:24)
[2020-06-02] MEDS: PIOGLITAZONE 15 MG TABLET PO SCH (08:24)
[2020-06-02] MEDS: ENOXAPARIN 40 MG/0.4 ML SYRINGE SQ SCH (08:25)
[2020-06-02] MEDS: methylPREDNISolone SOD SUCC 40 MG/ML VIAL IV SCH (08:26)
[2020-06-02] MEDS: INSULIN LISPRO 1 UNIT/0.01 ML UNIT SQ SCH ×2 (08:27→11:35)
[2020-06-02] MEDS: INSULIN NPH, HUMAN 1 UNIT/0.01 ML UNIT SQ SCH (08:27)
[2020-06-02] MEDS: LEVOFLOXACIN 750 MG/150 ML BAG IV SCH (08:29)
[2020-06-02 09:15] LABS: Basophils # (Auto) 0.12 K/mcL (0.00-0.20); Basophils % (Auto) 0.6 % (0.0-2.0); Eosinophils # (Auto) 0 K/mcL (0.00-0.70); Eosinophils % (Auto) 0 % (0.0-7.0); Hematocrit 32.3 % (41.0-55.0); Hemoglobin 10.4 g/dL (13.5-16.5); Lymphocytes # (Auto) 2.14 K/mcL (1.50-4.80); Lymphocytes % (Auto) 9.9 % (15.0-49.0); Mean Cell Volume 85.2 fL (80.0-100.0); Mean Corpuscular HGB Conc 32.2 g/dL (31.0-36.0); Mean Platelet Volume 9.5 fL (7.4-10.4); Monocytes # (Auto) 1.32 K/mcL (0.10-0.90); Monocytes % (Auto) 6.1 % (1.0-12.0); Neutrophils % (Auto) 83.4 % (38.0-78.0); Platelet Count 432 K/mcL (140-440); RBC 3.79 M/mcL (4.50-5.90); WBC 21.6 K/mcL (4.5-11.0)
[2020-06-02 09:23] LABS: ALT/SGPT 97 U/L (<40); AST/SGOT 84 U/L (<40); Albumin 2.7 gm/dL (3.2-5.2); Albumin/Globulin Ratio 0.8 (1.0-2.3); Alkaline Phosphatase 109 U/L (39-117); Bilirubin,Total 0.3 mg/dL (0.1-1.0); Blood Urea Nitrogen 31 mg/dL (8-23); Calcium 7.4 mg/dL (8.6-10.4); Carbon Dioxide 29 mmol/L (22-30); Chloride 100 mmol/L (96-108); Globulin 3.3 gm/dL (2.2-3.7); Glomerular Filtration Rate 86; Glucose 315 mg/dL (70-105)
[2020-06-02] MEDS ORDERED: SODIUM PHOSPHATE 15 MMOL in DEXTROSE 5% IN WATER 250 ML IV ONE (13:24)
--- NOTE | 2020-06-02 13:33 | Discharge Summary ---
Discharge Provider Provider Patient information: Note initiated : 06/02/20 at 1:32 pm Service Date, if different from initiated Date: [] Patient: Carmen Morelos 69 y/o M admitted on 05/27/20 for PNA. Chief Complaint: [] Date of admission: 05/27/20 04:20 Discharge date: 06/02/20 Primary care physician: Gustavo Rousseau Discharge Meds Discharge Medications Home Medications Novolin N NPH U-100 Insulin 20 unit SUBCUT BID 05/27/20 [History Confirmed 05/27/20 Last Taken 05/26/20] aspirin 325 mg PO HS 05/27/20 [History Confirmed 05/27/20 Last Taken 05/26/20] lisinopril 40 mg PO HS 05/27/20 [History Confirmed 05/27/20 Last Taken 05/26/20] metformin 850 mg PO BID 05/27/20 [History Confirmed 05/27/20 Last Taken 05/26/20] omeprazole 20 mg PO BID 05/27/20 [History Confirmed 05/27/20 Last Taken 05/26/20] pioglitazone 15 mg PO BID 05/27/20 [History Confirmed 05/27/20 Last Taken Unknown] albuterol sulfate [Ventolin HFA] 1 puff INH Q4-6HP PRN #5 g 06/02/20 [Rx Last Taken Unknown] budesonide-formoterol 2 puff INHALATION BID #10.2 g 06/02/20 [Rx Last Taken Unknown] codeine-guaifenesin 5 ml PO Q4HP PRN #100 ml 06/02/20 [Rx Last Taken Unknown] insulin lispro [Humalog U-100 Insulin] See Rx Instructions .ROUTE .COMPLEX #3 ml 06/02/20 [Rx Last Taken Unknown] sod phos di, mono-K phos mono [Phospha 250 Neutral] 250 mg PO BID #10 tab 06/02/20 [Rx Last Taken Unknown] tiotropium bromide 2 puff INHALATION Q24H #4 g 06/02/20 [Rx Last Taken Unknown] COURSE Hospital Course Hospital course: Mr. Morelos is a 69 year discomfort Presented ED with cough for 3 to 4 days and some mild chest. Seen in the ED and chest x-ray did not show anything been presented back 2 days ago.he is cough got worse and he started getting increasing shortness of breath. He did have Covid test which is negative. Patient states he woke up [place] morning feeling dehydrated. But did not have any cough or shortness of breath until at night when he went to bed and he developed shortness of breath shortness of breath with coughing. Started to cough up some yellow-white phlegm. Denies chest pain. Denies subjective fevers In the ED revealed a pneumonia and he was hypoxic. [facility] has staffing issues and patient was transferred to [facility]. 1. CAP w/SIRS(dense RUL): -elevated PCT, febrile overnight -covid/myco/strep neg -completed a course of levoquin today -WBC went down to 21.6. He is on steroid. No evidence of new infection 2. Acute hypoxic respiratory failure: -concern for a cardiac component, some cephalization on cxr and fissure fluid and peripheral edema -2L NC - Echo pending - Lasix 20mg iv bid -No on home oxygen -Qualified for home oxygen by RT -echo pending 3. DANIEL on ?CKD: -1.7>1.5 >1.2 > 1.0 4. Hyponatremia/hypomag/hypophos: phos 2.5 today 5. DM w/hyperglycemia: A1c 8.6 6. HTN: 7. GERD: 8. Morbid obesity: BMI 43.7 9. Electrolytes derangement: replated and repeated. 10. COPD? wheezing b/l, disappeared. stop steroid today. He has received steroid treatment x 3 days. Decreased solumedry to 40mg iv q12hrs, inhalers. 11. ELevation of liver enzymes - etiology unknown. started to hold Lipitor today. Repeat liver enzymes in 3 days to make sure these enzymes back to normal. Interval history 05/28 Patient had some fevers and chills last night but overall feels much better. Shortness of breath is much improved although still on oxygen, currently on 5 L. But sats mid 90s. No other new pains or complaints other than the cough. 05/29 Today pt feels fine and does not have new complaints. His leg swelling improving. Creatinine went down to 1.2 PHos and mag 2.1 and 1.6 Lasix 20mg iv bid 05/30 Pt does not have new complaints. vital signs are stable and acceptable. Wheezing b/l will start him on short term of steroid. inhalers. fluid restriction pending echo report 05/31 Pt feels much better today, less sob. Denies fever, chills, nausea, or vomiting. His blood sugar went up today since I started him on steroids yesterday No overnight events. 06/01 Pt's SOB and wheezing significantly improved. Denies fever/chill, chest pain or dysuria His glucose went up to > 400 and wbc 25 today. No evidnece of bacterial infection. procalcitonin. Most likely due to use of steroid. He is on 3L 06/02 Patient has significantly improved proved. Vital signs are stable and acceptable. CM okay to go home. He told me that he can walk in the [place] without any problems. He wants to go home. He will be discharged home to follow-up with PCP in 3 days. Repeat CBC (hemoglobin and white blood cells), Phos, magnesium and CMP (liver and renal function) in 3 days. ELevation of liver enzymes - etiology unknown. started to hold Lipitor today. Repeat liver enzymes in 3 days to make sure these enzymes back to normal. Blood glucose is not well controlled due to use of steroid. His steroid will be discontinued today. Please check your BG before each meal and at bedtime. Adjust your insulin and oral diabetic meds based on BG levels. Call PCP for medical issues. Discharge diagnosis: PNA, Acute hypoxic respiratory failure Time Spent with Patient Time attestation: Total time spent providing and/or coordinating discharge services: EXAM Constitutional Vitals: Temp Pulse Resp BP Pulse Ox 97.9 F 81 18 146/68 91 06/02/20 07:20 06/02/20 08:00 06/02/20 08:00 06/02/20 07:20 06/02/20 09:00 Additional findings Additional findings: General: Alert, Awake, No acute Distress, obese Eyes/N/T: EOMI, PERRL, Head/Neck: neck supple, CV: RRR, No murmurs, Pulm: wheezing b/l (disappeared), mildy diminished BS. Abd: soft, nontender, +BS x4 Ext: no clubbing/cyanosis, 1-2+ b/l LE edema (improved) Neuro: Alert, no focal deficits, moves all extremities Skin: warm/dry Psych: normal mood Discharge Data Data Completed and Pending Labs on day of discharge: Labs from last 24 hours 06/02/20 06/02/20 05:38 05:38 WBC 21.6 H RBC 3.79 L Hgb 10.4 L Hct 32.3 L MCV 85.2 MCH 27.4 MCHC 32.2 RDW 16.0 H Plt Count 432 MPV 9.5 Neut % (Auto) 83.4 H Lymph % (Auto) 9.9 L Bracken % (Auto) 6.1 Eos % (Auto) 0 Baso % (Auto) 0.6 Lymph # (Auto) 2.14 Bracken # (Auto) 1.32 H Eos # (Auto) 0 Baso # (Auto) 0.12 Absolute Neutrophils 17.98 H Differential Comment Sodium 137 Potassium 4.5 Chloride 100 Carbon Dioxide 29 Anion Gap 8.0 BUN 31 H Creatinine 0.9 GFR Calculation 86 Glucose 315 H Calcium 7.4 L Total Bilirubin 0.3 AST 84 H ALT 97 H Alkaline Phosphatase 109 Total Protein 6.0 Albumin 2.7 L Globulin 3.3 Albumin/Globulin Ratio 0.8 L Preliminary micro results at discharge 05/28/20 17:40 Blood Culture - Preliminary Blood 05/28/20 17:25 Blood Culture - Preliminary Blood Discharge Plan Patient/Caregiver Discharge Instructions Activity: increase activity as tolerated Diet: Consistent Carbohydrate Activity Restrictions/Additional Instructions: follow-up with PCP in 3 days. Repeat CBC (hemoglobin and white blood cells), Phos, magnesium and CMP (liver and renal function) in 3 days. ELevation of liver enzymes - etiology unknown. started to hold Lipitor today. Repeat liver enzymes in 3 days to make sure these enzymes back to normal. Blood glucose is not well controlled due to use of steroid. The steroid will be discontinued today. Please check your BG before each meal and at bedtime. Adjust your insulin and oral diabetic meds based on BG levels. Call PCP for medical issues. Prescriptions: New codeine-guaifenesin 10-100 mg/5 mL Liquid 5 ml PO Q4HP PRN (Reason: Cough) Qty: 100 RF: 0 insulin lispro [Humalog U-100 Insulin] 100 unit/mL Solution See Rx Instructions .ROUTE .COMPLEX Qty: 3 RF: 0 albuterol sulfate [Ventolin HFA] 90 mcg/actuation Hfa Aerosol Inhaler 1 puff INH Q4-6HP PRN (Reason: Shortness Of Breath) Qty: 5 RF: 0 Phospha 250 Neutral 250 mg Tablet 250 mg PO BID Qty: 10 RF: 0 tiotropium bromide 1.25 mcg/actuation mist 2 puff INHALATION Q24H Qty: 4 RF: 0 budesonide-formoterol 80-4.5 mcg/actuation HFA aerosol inhaler 2 puff INHALATION BID Qty: 10.2 RF: 0 Continued pioglitazone 15 mg tablet 15 mg PO BID RF: 0 aspirin 325 mg Tablet 325 mg PO HS RF: 0 metformin 850 mg tablet 850 mg PO BID RF: 0 Novolin N NPH U-100 Insulin 100 unit/mL Suspension 20 unit SUBCUT BID RF: 0 omeprazole 20 mg capsule,delayed release(DR/EC) 20 mg PO BID RF: 0 lisinopril 40 mg tablet 40 mg PO HS RF: 0 Discontinued atorvastatin 20 mg tablet 20 mg PO HS RF: 0 ascorbic acid (vitamin C) 1,000 mg 1,000 mg PO DAILY RF: 0 Other Ambulatory Orders: Complete Blood Count (Routine) Timeframe: 3 Days Facility: [facility] - Location: Laboratory Ordered By: Jeremiah Beth Comprehensive Metabolic Panel (Routine) Timeframe: 3 Days Facility: [facility] - Location: Laboratory Ordered By: Jeremiah Beth Magnesium (Routine) Timeframe: 3 Days Facility: [facility] - Location: Laboratory Ordered By: Jeremiah Beth Phosphorous (Routine) Timeframe: 3 Days Facility: [facility] - Location: Laboratory Ordered By: Jeremiah Beth Follow Up Plan Follow up with: Unknown [Outside] (follow-up with PCP in 3 days. Repeat CBC (hemoglobin and white blood cells), Phos, magnesium and CMP (liver and renal function). ELevation of liver enzymes - etiology unknown. started to hold Lipitor today. Repeat liver enzymes in 3 days to make sure these enzymes back to normal. Call PCP for medical issues. ) Patient Disposition: Home, Self-Care Discharge Orders: Discharge Order (Routine); Ordered 06/02/20 Ordered By: Jeremiah Beth QUALITY VTE Deep Vein Thrombosis/Pulmonary Embolism Present on Admission: No
[2020-06-02 14:15] LABS: Phosphorous 2.5 mg/dL (2.5-4.5)
== END 2020-06-02 16:00 | disposition home or self-care (01) | DRG 193 ==
LOC: MEDSUR 04:20
PROVIDERS: ADMIT Internal Medicine; ATTEND Internal Medicine